=== PATIENT | female | born 1970 | race Caucasian/White ===

== ENCOUNTER 2017-05-08 15:00 | Outpatient (CLI) | payer OTHER | END 2017-05-08 15:01 | disposition home or self-care (01) | LOC: LAB.R 15:00 | PROVIDERS: ATTEND Family Medicine | DX: R10.2 Pelvic and perineal pain (principal) | CPT/HCPCS: 87480; 87510; 87660 ==

== ENCOUNTER 2017-05-31 08:00 | Outpatient (CLI) | payer OTHER | END 2017-05-31 08:01 | disposition home or self-care (01) | LOC: LAB.R 08:00 | PROVIDERS: ATTEND Registered Nurse | DX: Z30.430 Encounter for insertion of intrauterine contraceptive device (principal) | CPT/HCPCS: 87491; 87591 ==

== ENCOUNTER 2017-06-11 19:37 | Outpatient (CLI) | payer OTHER ==
--- NOTE | 2017-06-12 09:38 | Ultrasound Report ---
PELVIC ULTRASOUND: 06/11/2017 CLINICAL INDICATION: Irregular menstruation. TECHNIQUE: Transabdominal pelvic ultrasound performed for global evaluation. Transvaginal pelvic ultrasound performed for detailed evaluation. Real-time scanning performed and static images obtained. FINDINGS: The uterus is retroverted, measuring 9.6 x 6.2 x 5.3 cm. The endometrial echo complex measures 10 mm. An IUD is noted in the expected position in the endometrial canal. No focal myometrial lesion is present. The right ovary measures 3.3 x 2.1 x 2.0 cm, and is unremarkable. The left ovary measures 2.8 x 1.7 x 1.4 cm, and is unremarkable. No free fluid is present. IMPRESSION: IUD IN THE ENDOMETRIAL CANAL. NORMAL PELVIC ULTRASOUND. TD: 06/12/2017 09:37
== END 2017-06-11 19:38 | disposition home or self-care (01) ==
LOC: DI 19:37
PROVIDERS: ATTEND Registered Nurse
DX: N92.6 Irregular menstruation, unspecified (principal); Z97.5 Presence of (intrauterine) contraceptive device
CPT/HCPCS: 76830; 76856

== ENCOUNTER 2017-08-18 08:33 | Emergency (ER) | payer OTHER ==
[2017-08-18] MEDS ORDERED: KETOROLAC 60 MG/2 ML VIAL IM STA (10:09)
[2017-08-18] MEDS ORDERED: DEXAMETHASONE 10 MG/ML VIAL PO STA (10:09)
--- NOTE | 2017-08-18 10:19 | ED Physician Documentation ---
PD HPI BACK PAIN - Stated complaint Stated Complaint: BACK PX - Chief complaint Chief Complaint: Back Pain - History obtained from History obtained from: Patient - History of Present Illness Timing - onset: How many days ago (2) Timing - duration: Days (2) Timing - details: Gradual onset, Still present Location: Lower Quality: Pain, Spasm, Sharp Associated symptoms: No: Fever, Weakness, Numbness, Incontinent of urine, Unable to urinate, Hematuria, Incontinent of stool Worsened by: Movement Contributing factors: Lifting, Twisting Similar symptoms before: Has not had sx before Recently seen: Not recently seen - Additional information Additional information: 47-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 She denies any saddle anesthesia she denies any trouble with urination or defecation. She does not recall a specific incident that may have caused his injury. She does not recall any overuse. She does state that she works as a PATIENT INFORMATION COORDINATOR does help assist patients and last week she did have a patient who had dyskinesia and had a near fall that she assisted the patient with. She does not remember her back hurting at the time. Review of Systems Constitutional: denies: Fever Eyes: denies: Decreased vision Ears: denies: Ear pain Nose: denies: Congestion Throat: denies: Sore throat Cardiac: denies: Chest pain / pressure, Palpitations Respiratory: denies: Dyspnea, Cough GI: denies: Abdominal Pain, Nausea, Vomiting, Constipation, Diarrhea : denies: Dysuria, Frequency Skin: denies: Rash, Lesions Musculoskeletal: reports: Back pain. 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 - Present Medications Home Medications: Ambulatory Orders Medication Instructions Recorded Confirmed Cetirizine [ZyrTEC] 10 mg PO DAILY 04/08/16 04/08/16 Epinephrine [Epipen 2-Shane] 0.3 mg IJ ONCE PRN 04/08/16 04/08/16 Levothyroxine Sodium [Synthroid] 175 mcg PO QDAC 04/08/16 04/08/16 Cyclobenzaprine [Flexeril] 10 mg PO TID PRN #20 tablet 08/18/17 HYDROcod/ACETAM 5/325 [[place] 5/325] 1 - 2 ea PO Q6H PRN #15 tablet 08/18/17 - Allergies Allergies/Adverse Reactions: Allergies Allergy/AdvReac Type Severity Reaction Status Date / Time erythromycin base Allergy Hives Verified 08/18/17 09:10 [Erythromycin Base] venom-honey bee Allergy Anaphylaxis Verified 08/18/17 09:10 yogurt Allergy Unknown Uncoded 08/18/17 09:10 - Social History Does the pt smoke?: Yes Smoking Status: Current every day smoker Does the pt drink ETOH?: Yes Does the pt have substance abuse?: No - Immunizations Immunizations are current?: Yes - POLST Patient has POLST: No PD ED PE NORMAL - Vitals Vital signs reviewed: Yes (normal ) - General General: Alert and oriented X 3, No acute distress, Well developed/nourished - HEENT HEENT: Atraumatic, PERRL, EOMI - Respiratory Respiratory: No respiratory distress - Abdomen Abdomen: Soft, Non tender - Back Back: No CVA TTP, No spinal TTP, Other (There is paraspinous muscle tendernss to the lower lumbar paraspinous muscles at the L5 level bilaterally ) - Derm Derm: Normal color, Warm and dry, No rash - Extremities Extremities: No deformity, No edema - Neuro Neuro: Alert and oriented X 3, press setter 2-12 intact, No motor deficit, No sensory deficit, Normal speech Eye Opening: Spontaneous Motor: Obeys Commands Verbal: Oriented GCS Score: 15 - Psych Psych: Normal mood, Normal affect Results - Vitals Vitals: Vital Signs - 24 hr 08/18/17 08:46 Temperature 37.1 C Heart Rate 73 Respiratory 16 Rate Blood Pressure 111/78 O2 Saturation 98 Oxygen O2 Source Room air PD MEDICAL DECISION MAKING - ED course Complexity details: considered differential, d/w patient ED course: 47-year-old female with acute sciatica has had a client have a near collapse that she assisted with and this is the likely etiology of the patient's back pain. She is administered dexamethasone and toradal here in the emergency department and we will provide her with some pain medication muscle relaxant and a note for work for 3 days. Departure - Departure Disposition: 01 Home, Self Care Clinical Impression: Sciatica Qualifiers: Laterality: bilateral Qualified Code(s): M54.31 - Sciatica, right side; M54.32 - Sciatica, left side; M54.32 - Sciatica, left side Condition: Stable Instructions: ED Sciatica Follow-Up: Jin Velázquez MD [Primary Care Provider] - Prescriptions: Cyclobenzaprine [Flexeril] 10 mg PO TID PRN #20 tablet PRN Reason: Spasms HYDROcod/ACETAM 5/325 [[place] 5/325] 1 - 2 ea PO Q6H PRN #15 tablet PRN Reason: Pain Forms: Activity restrictions
[2017-08-18] MEDS ORDERED: CHERRY SYRUP 10 ML UDC PO ONE (10:33)
[2017-08-18 10:44] VITALS: BP 147/68
== END 2017-08-18 10:44 | disposition home or self-care (01) ==
LOC: ED 08:33
DX: M54.31 Sciatica, right side (principal); M54.32 Sciatica, left side; I10 Essential (primary) hypertension; E03.9 Hypothyroidism, unspecified; F17.200 Nicotine dependence, unspecified, uncomplicated
CPT/HCPCS: 96372; 99283; A9270